=== PATIENT | female | born 1980 | race American Indian/Alaskan Native ===

== ENCOUNTER 2020-06-06 18:06 | Emergency (ER) | payer OTHER ==
[2020-06-06 19:31] VITALS: BP 160/102
[2020-06-06] MEDS ORDERED: IBUPROFEN 800 MG TAB PO ONE (19:35)
[2020-06-06] MEDS ORDERED: ONDANSETRON 4 MG ODT TAB PO ONE (19:36)
[2020-06-06] MEDS ORDERED: ACETAMINOPHEN 325 MG TAB PO ONE (19:36)
--- NOTE | 2020-06-06 19:41 | Emergency Department Report ---
ED General Adult HPI - General Stated complaint: DIZZY Time Seen by Provider: 06/06/20 19:34 - History of Present Illness Initial comments: 40-year-old -[place] female patient presents with complaints of room spinning dizziness x4 days and a headache x today. She reports a history of vertigo and states this feels similar. Dizziness worsens with head movement and does cause some nausea. She states 1 or 2 episodes of vomiting. Patient rates her headache as a 7/10 in severity and states it was relieved earlier today with OTC tension headache medication, however the headache returned a couple of hours ago. She denies worst headache of her life, head trauma, vision changes, numbness/tingling/weakness in her limbs, difficulty with speech/ambulation, confusion, or memory loss. She reports she has been taking Dramamine which helps, however the vertigo returns again. She is not currently following with an ENT specialist and states she has not seen an ENT specialist in the past for her vertigo. No hearing changes or tinnitus per patient. - Related Data Previous Rx's Medication Instructions Recorded Last Taken Type Meclizine [Antivert] 25 - 50 mg PO TID PRN #20 tablet 06/06/20 Unknown Rx Ondansetron [Zofran Odt] 4 mg PO Q8HR PRN #15 tab.rapdis 06/06/20 Unknown Rx ED Review of Systems ROS: Stated complaint: DIZZY Other details as noted in HPI Constitutional: denies: chills, fever Eyes: denies: eye pain, vision change ENT: denies: ear pain Respiratory: denies: cough, shortness of breath Cardiovascular: denies: chest pain Gastrointestinal: nausea, vomiting. denies: abdominal pain, diarrhea Musculoskeletal: denies: arthralgia Skin: denies: rash, lesions, change in color Neurological: headache. denies: numbness, paresthesias, confusion, abnormal gait Hematological/Lymphatic: denies: easy bleeding ED Past Medical Hx - Medications Home Medications: Home Medications Medication Instructions Recorded Confirmed Last Taken Type Meclizine [Antivert] 25 - 50 mg PO TID PRN #20 tablet 06/06/20 Unknown Rx Ondansetron [Zofran Odt] 4 mg PO Q8HR PRN #15 tab.rapdis 06/06/20 Unknown Rx ED Physical Exam - General General appearance: alert, in no apparent distress - Head Head exam: Present: atraumatic, normocephalic - Eye Eye exam: Present: normal appearance, PERRL, EOMI. Absent: scleral icterus - ENT ENT exam: Present: normal exam, mucous membranes moist - Neck Neck exam: Present: normal inspection, full ROM - Respiratory Respiratory exam: Present: normal lung sounds bilaterally. Absent: respiratory distress - Cardiovascular Cardiovascular Exam: Present: regular rate, normal rhythm - Extremities Exam Extremities exam: Present: full ROM - Back Exam Back exam: Present: normal inspection - Neurological Exam Neurological exam: Present: alert, oriented X3, CN II-XII intact, normal gait. Absent: motor sensory deficit - Expanded Neurological Exam Expanded Cerebellar function: Finger to Nose: Normal, Heel to Del Cid: Normal, Romberg: Normal Motor strength exam: RUE: 5, LUE: 5, RLE: 5, LLE: 5 - Psychiatric Psychiatric exam: Present: normal affect, normal mood - Skin Skin exam: Present: warm, dry, intact, normal color. Absent: rash, cyanosis, diaphoretic ED Course Vital Signs 06/06/20 19:28 Temperature 98.2 F Pulse Rate 79 Respiratory 18 Rate Blood Pressure 160/102 O2 Sat by Pulse 97 Oximetry ED Medical Decision Making - Medical Decision Making 40-year-old -[place] female patient presents with complaints of room spinning dizziness x4 days and a headache x today. She reports a history of vertigo and states this feels similar. Dizziness worsens with head movement and does cause some nausea. She states 1 or 2 episodes of vomiting. Patient rates her headache as a 7/10 in severity and states it was relieved earlier today with OTC tension headache medication, however the headache returned a couple of hours ago. She denies worst headache of her life, head trauma, vision changes, numbness/tingling/weakness in her limbs, difficulty with speech/ambulation, confusion, or memory loss. She reports she has been taking Dramamine which helps, however the vertigo returns again. She is not currently following with an ENT specialist and states she has not seen an ENT specialist in the past for her vertigo. No hearing changes or tinnitus per patient. Patient is neurologically intact. Patient given meclizine, ibuprofen, Tylenol, and Zofran. Her symptoms have resolved. Recommend follow-up with ENT specialist, referral provided to patient. Discussed signs and symptoms that should prompt immediate return to the emergency department in detail with patient who verbalizes understanding. Critical care attestation.: If time is entered above; I have spent that time in minutes in the direct care of this critically ill patient, excluding procedure time. ED Disposition Clinical Impression: BPPV (benign paroxysmal positional vertigo) Qualifiers: Laterality: unspecified laterality Qualified Code(s): H81.10 - Benign paroxysmal vertigo, unspecified ear Disposition: TO HOME OR SELFCARE Is pt being admited?: No Condition: Stable Instructions: Benign Positional Vertigo Prescriptions: Meclizine [Antivert] 25 - 50 mg PO TID PRN #20 tablet PRN Reason: Vertigo Ondansetron [Zofran Odt] 4 mg PO Q8HR PRN #15 tab.rapdis PRN Reason: Nausea Referrals: KRISTIAN VARELA MD [Staff Physician] - 2-3 Days
== END 2020-06-07 01:51 | disposition home or self-care (01) ==
LOC: ED 18:06
DX: H81.10 Benign paroxysmal vertigo, unspecified ear (principal); Z79.899 Other long term (current) drug therapy
CPT/HCPCS: 99282